=== PATIENT | female | born 1985 | race Two or more races ===

== ENCOUNTER 2023-09-25 08:44 | Emergency (ER) | payer MEDICAID, OTHER ==
[~2023-09-25] VITALS: Ht 167.6 cm; Wt 65.7 kg
[2023-09-25] MEDS ORDERED: DEXT60TA4 PO (12:26)
[2023-09-25] MEDS ORDERED: AZIT-43 PO (12:26)
[2023-09-25] MEDS ORDERED: IBUP1TAB5 PO (12:26)
[2023-09-25 12:32] VITALS: BP 100/62; PULSE 65; RESP 19; TEMP 98.2; O2SAT 98
== END 2023-09-25 12:33 | disposition home or self-care (01) ==
LOC: ER 08:44
DX: J02.9 Acute pharyngitis, unspecified (principal); J06.9 Acute upper respiratory infection, unspecified